=== PATIENT | male | born 1980 | race Caucasian/White ===

== ENCOUNTER 2016-11-09 22:50 | Emergency (ER) | payer OTHER ==
[2016-11-09 22:59] VITALS: RESP 18; TEMP 98.2
[2016-11-09 23:03] VITALS: BP 129/67; PULSE 72; O2SAT 96
[2016-11-09] MEDS ORDERED: TDAP VACCINE 0.5 ML SUS IM ONE ×2 (23:18→23:23)
== END 2016-11-09 23:42 | disposition home or self-care (01) | DRG 605 ==
LOC: ED 22:50
DX: S01.01XA Laceration without foreign body of scalp, initial encounter (principal); R55 Syncope and collapse
CPT/HCPCS: 12002; 90471; 90715; 99283; 99284